=== PATIENT | male | born 1940 | race Caucasian/White ===

== ENCOUNTER → 2020-06-22 13:03 | Outpatient (CLI) | payer MEDICARE, OTHER, SELFPAY ==
--- NOTE | 2020-06-22 13:14 | DI.ECHO.S_ITS ---
[facility] +---------+ : : [address] : [place] [address] : : : : [id number] : : : : Phone: [phone]---------+ Echocardiogram Report + + :Name: CATERINA SCALES Study Date: 06/22/2020 Height: 71 in : :[facility] ReadingLocation: Weight: 212 lb : : Gender: Male BSA: 2.2 m2 : :: 1940 Age: 79 yrs BP: 126/81 mmHg: :Reason For Study: PERICARDIAL EFFUSION, CHEST PAIN : :Ordering Physician: CARL, : :YOGESH Performed By: Anjana Hood : :Referring: YOGESH HENRY : + + Interpretation Summary This is a limited echocardiogram focused on assessment for possible pericardial effusion following pacemaker placement on 04/12/2020. The left ventricle appears normal with an estimated ejection fraction of 65- 70% without any focal wall motion abnormality and appears unchanged. The right ventricle appears normal in size and systolic function. A pacemaker lead is identified. Right ventricular systolic pressure is estimated at 28 mmHg plus the clinically estimated CVP. There is severe left atrial enlargement and mild right atrial enlargement. Right atrial size has increased since the previous study. There is mild tricuspid regurgitation. There is no obvious pericardial effusion seen. Procedure: A two-dimensional transthoracic echocardiogram with color flow and Doppler was performed in limited views only to assess for pericardial effusion.. The study quality was technically adequate. Comparison is made with the echocardiogram of 04/14/2020. The patient has a paced rhythm. The heart rate ranged between 59-66 bpm during the study. Left Ventricle: The left ventricle is normal in size and wall thickness. The ejection fraction is estimated to be 65-70%. Right Ventricle: There is a pacemaker lead in the right ventricle. The right ventricle is normal in size and function. Atria: The left atrium is severely dilated. The right atrium is mildly dilated. There is a catheter/pacemaker lead seen in the right atrium. Tricuspid Valve: There is mild tricuspid regurgitation. Right ventricular systolic pressure is estimated to be 28 mmHg plus the clinically estimated CVP which cannot be estimated on this exam. Great Vessels: The inferior vena cava was not well visualized. Pericardium/ Pleura There is no pericardial effusion. There is no pleural effusion. MMode/2D Measurements & Calculations LVIDd: 5.1 cm LA A2 area: 31.3 cm2 LVIDs: 3.2 cm LA A4 area: 33.3 cm2 FS: 36.9 % LA length (vol): 6.8 cm IVSd: 0.96 cm LA vol: 129.4 ml LVPWd: 0.89 cm LA vol index: 59.9 ml/m2 LV hoffmann. diameter/BSA (cm/m^2): 2.4 LV sys. diameter/BSA (cm/m^2): 1.5 RA long axis: 5.9 cm RVD1 (basal): 3.9 cm RA area: 24.3 cm2 TAPSE: 2.3 cm RA vol: 84.5 ml RA : 39.1 ml/m2 Doppler Measurements & Calculations TR max jono: 262.8 cm/sec TR max P.6 mmHg Reading Physician:04:14 PM
== END ==
PROVIDERS: Referring Provider Physician Assistant Medical; Visit Provider Physician Assistant Medical
DX: I31.3 Pericardial effusion (noninflammatory) (principal); R07.9 Chest pain, unspecified
CPT/HCPCS: 93307

== ENCOUNTER → 2021-12-13 08:05 | Outpatient (CLI) | payer MEDICARE, OTHER, SELFPAY ==
--- NOTE | 2021-12-13 08:08 | DI.ECHO.S_ITS ---
[facility] +---------+ : : [address] [place] [address] : : : : [id number] : : : : Phone: [phone]+ Echocardiogram Report + + :Name: CATERINA SCALES Study Date: 12/13/2021 Height: 71 in : :[facility] ReadingLocation: Weight: 183 lb: : Gender: Male BSA: 2.0 m2 : :: 1940 Age: 81 yrs BP: 94/51 mmHg: :Reason For Study: DIASTOLIC HEART FAILURE : :Ordering Physician: AYAKA, : :ANNA Parker Performed By: Anjana Hood : :Referring: ANNA MARLEY W : + + Interpretation Summary 1) Mildly increased left ventricular tihckness (concentric) with normal size and normal systolic function (EF 55-60%). 2) Mildly enlarged right ventricle with mildly reduced function. There is a pacemaker lead in the right ventricle. 3) Severe biatrial enlargement (left worse than right). 4) There is mild to moderate mitral regurgitation. 5) There is mild to moderate aortic regurgitation. 6) There is mild to moderate aortic stenosis (valve area 1.4cm2, mean gradient 17mmHg, severity ratio 0.34). 7) Compared to the Echo done 04/14/2020, aortic regurgitation has worsened from mild to mild-moderate to mitral regurgitation has worsened from mild to mild-moderate on this study. Procedure: A two-dimensional transthoracic echocardiogram with color flow and Doppler was performed. The study quality was technically adequate. Comparison is made with the echocardiogram of 06/22/2020. The patient has a paced rhythm. The heart rate ranged between 65-80 bpm during the study. Left Ventricle: The left ventricle is normal in size. There is mild concentric left ventricular hypertrophy. Proximal septal thickening is noted. The ejection fraction is estimated to be 55-60%. Apical wall motion abnormality may reflect pacemaker activation. Diastolic parameters suggest a pseudonormalization pattern, consistent with probable elevated filling pressures. Right Ventricle: There is a pacemaker lead in the right ventricle. The right ventricle is mildly dilated. Right ventricular systolic function is mildly reduced. Atria: The left atrium is severely dilated. The right atrium is severely dilated. There is a catheter/pacemaker lead seen in the right atrium. There is no Doppler evidence for an interatrial shunt. Mitral Valve: There is moderate mitral annular calcification. The mitral valve leaflets are moderately calcified. There is mild to moderate mitral regurgitation. Aortic Valve: The aortic valve is heavily calcified. The aortic valve is trileaflet. There is moderately reduced leaflet mobility. The peak aortic velocity is 2.6 m/sec. The aortic valve mean gradient is 17 mmHg. There is mild to moderate aortic stenosis. There is mild to moderate aortic regurgitation. Tricuspid Valve: The tricuspid valve is not well visualized, but is grossly normal. There is mild tricuspid regurgitation. Right ventricular systolic pressure is estimated to be 37 mmHg plus the clinically estimated CVP which cannot be estimated on this exam. Pulmonic Valve: The pulmonic valve is not well visualized. There is mild pulmonic regurgitation. Great Vessels: The aortic root is normal size. The ascending aorta could not be visualized. The inferior vena cava was not well visualized. Pericardium/ Pleura There is no pericardial effusion. There is no pleural effusion. MMode/2D Measurements & Calculations LVIDd: 5.4 cm LVOT diam: 2.2 cm LVIDs: 3.9 cm Ao root diam: 3.8 cm FS: 29.1 % Ao Arch Diam (Prox Trans): 3.3 cm EPSS: 1.5 cm IVSd: 1.1 cm LVPWd: 1.1 cm LV hoffmann. diameter/BSA (cm/m^2): 2.7 LV sys. diameter/BSA (cm/m^2): 1.9 LA A2 area: 40.8 cm2 RA long axis: 7.5 cm LA A4 area: 38.7 cm2 RA area: 33.7 cm2 LA length (vol): 7.8 cm RA vol: 128.4 ml LA vol: 172.9 ml RA : 63.2 ml/m2 LA vol index: 85.2 ml/m2 RVD1 (basal): 4.8 cm RVD2 (mid): 4.4 cm TAPSE: 1.7 cm Doppler Measurements & Calculations Ao V2 max: 257.0 cm/sec LVOT Max Campos: 99.0 cm/sec Ao V2 mean: 188.9 cm/sec LV V1 max P.9 mmHg Ao max P.6 mmHg LV V1 VTI: 20.0 cm Ao mean P.2 mmHg BRIANA(I,D): 1.2 cm2 Ao V2 VTI: 59.3 cm BRIANA(V,D): 1.4 cm2 sev ratio: 0.34 BRIANA indexed to BSA (cm^2/m^2): 0.61 AI P1/2t: 532.0 msec AI dec slope: 209.5 cm/sec2 MV E max campos: 139.1 cm/sec TR max campos: 301.9 cm/sec MV A max campos: 0.69 cm/sec TR max P.5 mmHg MV E/A: 201.1 PA V2 max: 96.9 cm/sec Med Peak E' Campos: 5.8 cm/sec PA V2 mean: 66.4 cm/sec E/E' med: 24.0 PA mean P.0 mmHg Lat Peak E' Campos: 7.5 cm/sec PA pr(Accel): 53.3 mmHg E/E' lat: 18.5 E/e' average: 21.2 MV dec time: 0.19 sec MVA(VTI): 1.9 cm2 MV V2 mean: 81.8 cm/sec MR VTI: 171.2 cm MV mean P.1 mmHg MV V2 VTI: 37.9 cm SV(LVOT): 73.6 ml Reading Physician:10:57 AM
[2021-12-13 13:53] LABS: COVID19 -Nasal RAPID Negative (Negative)
--- NOTE | 2021-12-13 19:08 | DI.NM.S_ITS ---
DATE OF SERVICE: 12/13/2021 PROCEDURE: Pharmacological perfusion study. INDICATION: CHF with known history of coronary artery bypass surgery in 2013, complete heart block, history with dual-chamber pacemaker, persistent AFib. RADIOPHARMACEUTICAL: 25.0 millicurie technetium-99m Myoview IV was injected at stress and 12.9 millicurie technetium-99m Myoview IV was injected at rest. CARDIAC STRESS: The patient underwent IV Lexiscan perfusion study under the supervision of an attending staff using standard intravenous Lexiscan, as per protocol. The patient remained hemodynamically stable. Baseline blood pressure was 102/58. Baseline rhythm predominantly ventricular paced rhythm with underlying AFib and occasional ventricular sensing with inferior and lateral T- wave inversion. During Lexiscan infusion, more [place] conduction was seen. The patient remained having underlying AFib, as well as intermittent ventricular pacing. No sustained ventricular tachycardia seen. No chest pain. Had minimal dyspnea. RAW DATA: There was increased subdiaphragmatic activity. GATED STUDY: Resting LV ejection fraction 50 and stress LV ejection fraction 57 percent. I do not see any significant wall motion abnormalities during stress. Resting end-diastolic volume 153 mL. TID ratio 1.13, which is within normal limits. Lung/heart ratio 0.38, which is within normal limits. MYOCARDIAL PERFUSION SCAN: Stress supine, resting supine and stress prone images were compared to each other. Stress supine and resting supine images revealed moderate-size, moderately decreased perfusion of base to mid anterior wall, as well as moderate size, severely decreased perfusion of inferoapex. During stress prone images, inferior apex defect completely normalized, suggestive of diaphragmatic tissue attenuation artifact. Base to mid anterior wall defect got some improvement. However, patient remained to have mildly decreased perfusion of base to mid anterior wall. No reversible ischemia. CONCLUSION: This is an abnormal myocardial perfusion study consistent with moderate size, mild infarction of base to mid anterior wall without any reversible ischemia. There was also evidence of diaphragmatic tissue attenuation artifact, which got improved and resolved during stress prone images. Resting left ventricular ejection fraction 50 percent and stress left ventricular ejection fraction 57 percent. No transient ischemic dilatation. As far as perfusion scan is concerned, this is a low-risk myocardial perfusion scan. Mihai Molina - Lyndsey/grace doc#: [id number]/job#: [id number] dd: 12/13/2021 17:04:00 dt: 12/13/2021 18:49:00 DICTATING MD/COPIES TO: Braulio Tomlinson MD COPIES MNE: LUISANA;
== END ==
PROVIDERS: Referring Provider Nurse Practitioner; Visit Provider Nurse Practitioner
DX: I50.31 Acute diastolic (congestive) heart failure (principal); I08.3 Combined rheumatic disorders of mitral, aortic and tricuspid valves; R94.39 Abnormal result of other cardiovascular function study; I48.19 Other persistent atrial fibrillation; Z20.822 Contact with and (suspected) exposure to COVID-19; Z95.0 Presence of cardiac pacemaker
CPT/HCPCS: 78452; 87635; 93017; 93306; A9502; J2785